=== PATIENT | female | born 2000 | race Caucasian/White ===

== ENCOUNTER 2022-04-24 13:54 | Inpatient (IN) | payer MEDICAID, OTHER ==
[~2022-04-24] VITALS: Ht 162.6 cm; Wt 72.2 kg
[2022-04-24 14:27] LABS: EOSINOPHILS % (AUTO) 4.9 % (1.0-6.0); HEMATOCRIT 40.5 % (36-46); LYMPHOCYTES # (AUTO) 2.7 K/uL (1.0-4.8); LYMPHOCYTES % (AUTO) 42.7 % (22.0-44.0); MEAN CORPUSCULAR HEMOGLOBIN 30.4 pg (26.0-34.0); MEAN CORPUSCULAR HGB CONC 34.5 G/dL (31.0-37.0); MEAN CORPUSCULAR VOLUME 88 fL (80-100); MONOCYTES # (AUTO) 0.5 K/uL (0.1-1.0); MONOCYTES % (AUTO) 7.5 % (2.0-9.0); NEUTROPHILS # (AUTO) 2.7 K/uL (1.8-7.7); NEUTROPHILS % (AUTO) 43.9 % (40.0-70.0); PLATELET COUNT (AUTO) 371 K/uL (150-450); RED BLOOD CELL COUNT(AUTO) 4.59 MIL/uL (4.00-5.20); RED CELL DISTRIBUTION WIDTH 13.3 % (11.5-14.5)
[2022-04-24] MEDS ORDERED: SERT-162 PO (14:38)
[2022-04-24 14:41] LABS: ANION GAP 7 mmol/L (8-16); CARBON DIOXIDE 24 mmol/L (22-29); CHLORIDE 106 mmol/L (98-107); CREATININE 0.74 mg/dL (0.60-1.30); GLOMERULAR FILTR. RATE CALC > 60 mL/min (>60); GLUCOSE,RANDOM 96 mg/dL (70-110); POTASSIUM 3.9 mmol/L (3.5-5.1); SODIUM SERUM 137 mmol/L (136-145); UREA NITROGEN, BLOOD 10 mg/dL (7-18)
[2022-04-24 14:45] LABS: COVID AG,FIA SOURCE NASOPHARYNGEAL
[2022-04-24 14:50] LABS: ALANINE AMINOTRANSFERASE 35 U/L (12-78); ALBUMIN 3.8 g/dL (3.4-5.0); ALKALINE PHOSPHATASE 81 U/L (46-116); ASPARTATE AMINOTRANSFERASE 20 U/L (15-37); BILIRUBIN,TOTAL 0.3 mg/dL (0.1-1.0); HCG,QUANTITATIVE < 1 mIU/mL (0-6); TOTAL PROTEIN, SERUM 7.3 g/dL (6.4-8.2)
[2022-04-24 14:51] LABS: ACETAMINOPHEN < 2 mcg/mL (10-30)
[2022-04-24 14:52] LABS: SALICYLATE 0.7 mg/dL (2.8-20.0)
[2022-04-24] MEDS ORDERED: HALOPERIDOL 5 MG TABLET PO PRN (17:30)
[2022-04-24] MEDS ORDERED: ZOLPIDEM TARTRATE 10 MG TABLET PO PRN (17:30)
[2022-04-24] MEDS ORDERED: LORazepam 2 MG TABLET PO PRN (17:30)
[2022-04-24 20:18] LABS: AMPHET/METH SCREEN,URINE NEGATIVE (NEGATIVE); BARBITURATE SCREEN, URINE NEGATIVE (NEGATIVE); BENZODIAZEPINES SCREEN,URINE NEGATIVE (NEGATIVE); CANNABINOID SCREEN,URINE NEGATIVE (NEGATIVE); COCAINE SCREEN,URINE NEGATIVE (NEGATIVE); METHADONE SCREEN, URINE NEGATIVE (NEGATIVE); OPIATE SCREEN,URINE NEGATIVE (NEGATIVE)
[2022-04-24 20:20] LABS: PHENCYCLIDINE SCREEN,URINE NEGATIVE (NEGATIVE)
[2022-04-24 21:45] VITALS: BP 117/63
[2022-04-25 01:26] LABS: APPEARANCE,URINE HAZY (CLEAR); BILIRUBIN,URINE NEGATIVE (NEGATIVE); GLUCOSE, URINE (UA) NEGATIVE (NEGATIVE); KETONES,URINE NEGATIVE (NEGATIVE); LEUKOCYTE ESTERASE ,URINE NEGATIVE (NEGATIVE); NITRATE,URINE NEGATIVE (NEGATIVE); OCCULT BLOOD,URINE NEGATIVE (NEGATIVE); SPECIFIC GRAVITIY, URINE 1.024 (1.003-1.030); UROBILINOGEN,URINE <=1.0 mg/dL (<=1.0)
[2022-04-25 01:37] LABS: PROTEIN,URINE NEGATIVE (NEGATIVE)
[2022-04-25] MEDS ORDERED: ONDANSETRON HCL 4 MG TABLET PO PRN (09:00)
[2022-04-25] MEDS ORDERED: MAG HYDROX/AL HYDROX/SIMETH ES 30 ML SUSPENSION UDCUP PO PRN (09:00)
[2022-04-25] MEDS ORDERED: DOCUSATE SODIUM 100 MG CAPSULE PO PRN (09:00)
[2022-04-25] MEDS ORDERED: MAGNESIUM HYDROXIDE SUSPENSION 30 ML UDCUP PO PRN (09:00)
[2022-04-25] MEDS ORDERED: PETROLATUM,WHITE 28 GM JELLY TP PRN (09:00)
[2022-04-25] MEDS ORDERED: BENZOCAINE/MENTHOL LOZENGE PO PRN (09:00)
[2022-04-25] MEDS ORDERED: LOPERAMIDE HCL 2 MG CAPSULE PO PRN (09:00)
[2022-04-25] MEDS ORDERED: ACETAMINOPHEN 325 MG TABLET PO PRN (09:00)
[2022-04-25] MEDS ORDERED: CloNIDine HCL 0.1 MG TABLET PO PRN (09:00)
[2022-04-25] MEDS ORDERED: ALBUTEROL SULFATE HFA 90 MCG/PUFF 8 GM INHALER IH PRN (09:00)
[2022-04-25] MEDS ORDERED: OMEPRAZOLE 20 MG CAPSULE PO PRN (09:00)
[2022-04-25] MEDS ORDERED: IBUPROFEN 600 MG TABLET PO PRN (09:00)
[2022-04-25] MEDS ORDERED: BACITRACIN 28 GM OINTMENT TP PRN (09:00)
[2022-04-25 10:25] VITALS: BP 127/67
[2022-04-25 16:00] VITALS: BP 124/69
[2022-04-25] MEDS: DIVALPROEX SODIUM 500 MG DR TABLET PO SCH (16:36)
[2022-04-26] MEDS ORDERED: CITALOPRAM HYDROBROMIDE 20 MG TABLET PO SCH (09:00)
[2022-04-26] MEDS: DIVALPROEX SODIUM 500 MG DR TABLET PO SCH ×2 (09:03→16:26)
[2022-04-26 10:05] VITALS: BP 106/50
[2022-04-26] MEDS ORDERED: DIVA-112 PO (15:44)
[2022-04-26] MEDS ORDERED: CITA-144 PO (15:44)
[2022-04-26 18:42] VITALS: BP 126/75
== END 2022-04-26 19:10 | disposition home or self-care (01) | DRG 754 ==
LOC: EMS 13:56 → 3EI 18:20
PROVIDERS: ADMIT Psychiatry & Neurology Psychiatry; ATTEND Psychiatry & Neurology Psychiatry
DX: F32.9 Major depressive disorder, single episode, unspecified (principal); F11.10 Opioid abuse, uncomplicated; Z20.822 Contact with and (suspected) exposure to COVID-19; F41.9 Anxiety disorder, unspecified; G47.00 Insomnia, unspecified; K59.00 Constipation, unspecified; F17.210 Nicotine dependence, cigarettes, uncomplicated
CPT/HCPCS: 80053; 80307; 81003; 83735; 84702; 84703; 85025; 93005; 99285; G0480; G0481